=== PATIENT | male | born 1960 | race Caucasian/White ===

== ENCOUNTER 2022-03-21 14:59 | Observation (INO) ==
[2022-03-21] MEDS ORDERED: Naloxone 0.4 MG/ML INJ IVP PRN (17:10)
[2022-03-21] MEDS ORDERED: Acetaminophen 325 MG TABLET PO PRN (17:10)
[2022-03-21] MEDS ORDERED: Ondansetron 4 MG/2 ML VIAL IVP PRN (17:10)
[2022-03-21] MEDS ORDERED: Gadolinium Contrast Agent (WT Based) IV PRN (17:44)
[2022-03-21] MEDS ORDERED: *HR* Labetalol 20 MG/4 ML SYRINGE IVP PRN (17:48)
[2022-03-21] MEDS ORDERED: Cyanocobalamin (B-12) 1,000 MCG/ML VIAL SQ ONE (17:48)
[2022-03-21] MEDS ORDERED: Thiamine (B-1) 100 MG in 0.9 % Sodium Chloride 50 ML IVPB STA ×2 (17:51→21:31)
[2022-03-21] MEDS ORDERED: *HR* LORazepam 2 MG/ML VIAL IVP PRN ×3 (17:52)
[2022-03-22 06:59] LABS: Basophils % 0.6 %; Eosinophils # 0.2 K/mcL (0.0-0.6); Eosinophils % 2.8 %; Hematocrit 43.4 % (37.5-50.1); Hemoglobin 14.6 g/dL (12.9-16.9); Immature Granulocytes % 0.2 % (0-4); Lymphocytes # 1.3 K/mcL (0.6-4.6); Lymphocytes % 19.6 %; Mean Corpuscular HGB Conc 33.6 g/dL (31.6-35.5); Mean Corpuscular Hemoglobin 35.6 pg (28.0-33.3); Mean Corpuscular Volume 105.9 fL (83.0-100.0); Mean Platelet Volume 9.7 fL (9.4-12.4); Monocytes # 0.7 K/mcL (0.0-1.3); Monocytes % 10.2 %; Neutrophils # 4.3 K/mcL (1.6-8.9); Platelet Count 228 K/mcL (140-400); Red Cell Distribution Width 12.8 % (11.5-14.5); Segmented Neutrophils % 66.6 %; White Blood Count 6.5 K/mcL (4.3-11.1)
[2022-03-22 07:19] LABS: Alanine Aminotransferase 14 Units/L (7-52); Albumin 3.7 g/dL (3.5-5.7); Albumin/Globulin Ratio 1.5 (1.1-2.2); Alkaline Phosphatase 84 Units/L (34-104); Aspartate Amino Transferase 23 Units/L (13-39); BUN/Creatinine Ratio 13 (6-26); Bilirubin,Direct 0.1 mg/dL (0.0-0.2); Bilirubin,Indirect 0.5 mg/dL (0.0-1.0); Bilirubin,Total 0.6 mg/dL (0.3-1.0); Blood Urea Nitrogen 11 mg/dL (8-23); Carbon Dioxide 24 mEq/L (23-29); Chloride 108 mEq/L (98-107); Globulin 2.5 g/dL (2.4-3.5); Glucose 109 mg/dL (70-105); Osmolality,Calculated 288 (280-300); Potassium 4.6 mEq/L (3.5-5.1); Sodium 139 mEq/L (136-145); Total Protein 6.2 g/dL (6.4-8.9); eGFR For African Americans > 60 (> 60); eGFR For Non-African Americans > 60 (> 60)
[2022-03-22 07:44] LABS: Folate > 22.3 ng/mL (3.0-16.0); Vitamin B12 > 1500 pg/mL (250-1100)
[2022-03-22 07:49] LABS: Hepatitis B Surface Antigen Nonreactive (Nonreactive)
[2022-03-22 08:19] LABS: Hepatitis C Virus Antibody Nonreactive (Nonreactive)
[2022-03-22 08:20] LABS: Hepatitis A Antibody IgM Nonreactive (Nonreactive)
[2022-03-22] MEDS: Folic Acid 1 MG TABLET PO SCH (09:02)
[2022-03-22] MEDS: Nicotine 21 MG PATCH.TD24 TD SCH (09:02)
[2022-03-22] MEDS: Thiamine (B-1) 100 MG TABLET PO SCH (09:02)
[2022-03-22 09:32] LABS: Estimated Average Glucose 105 mg/dl; Hemoglobin A1C 5.3 %
[2022-03-22] MEDS: methylPREDNISolone 125 MG/2 ML VIAL IVP SCH (18:23)
[2022-03-23] MEDS: methylPREDNISolone 125 MG/2 ML VIAL IVP SCH ×2 (00:19→06:02)
[2022-03-23 06:22] LABS: BUN/Creatinine Ratio 19 (6-26); Blood Urea Nitrogen 13 mg/dL (8-23); Calcium 9.3 mg/dL (8.6-10.3); Carbon Dioxide 22 mEq/L (23-29); Chloride 107 mEq/L (98-107); Glucose 168 mg/dL (70-105); Osmolality,Calculated 286 (280-300); Potassium 4.1 mEq/L (3.5-5.1); Sodium 136 mEq/L (136-145); eGFR For African Americans > 60 (> 60); eGFR For Non-African Americans > 60 (> 60)
[2022-03-23 06:39] LABS: Basophils % 0.1 %; Hematocrit 43.7 % (37.5-50.1); Hemoglobin 15.2 g/dL (12.9-16.9); Immature Granulocytes % 0.4 % (0-4); Lymphocytes # 0.5 K/mcL (0.6-4.6); Mean Corpuscular HGB Conc 34.8 g/dL (31.6-35.5); Mean Corpuscular Hemoglobin 36.3 pg (28.0-33.3); Mean Corpuscular Volume 104.3 fL (83.0-100.0); Mean Platelet Volume 10.6 fL (9.4-12.4); Monocytes # 0.1 K/mcL (0.0-1.3); Monocytes % 0.6 %; Neutrophils # 7.1 K/mcL (1.6-8.9); Platelet Count 239 K/mcL (140-400); Red Blood Count 4.19 M/mcL (4.19-5.50); Red Cell Distribution Width 12.4 % (11.5-14.5); Segmented Neutrophils % 91.9 %; White Blood Count 7.7 K/mcL (4.3-11.1)
[2022-03-23 07:08] VITALS: BP 157/93; PULSE 107; TEMP 98.6; O2SAT 95
[2022-03-23] MEDS ORDERED: Vitamin B Complex/Vit C/Vit E 1 EACH TABLET PO SCH (09:00)
[2022-03-23] MEDS: Nicotine 21 MG PATCH.TD24 TD SCH (10:04)
[2022-03-23] MEDS: Folic Acid 1 MG TABLET PO SCH (10:04)
[2022-03-23] MEDS: Thiamine (B-1) 100 MG TABLET PO SCH (10:04)
== END 2022-03-23 13:32 | disposition home or self-care (01) ==
LOC: 3NENU → SUATTDRO 16:51
PROVIDERS: ADMIT Internal Medicine; ATTEND Student in an Organized Health Care Education/Training Program

== ENCOUNTER 2022-04-19 13:54 | Inpatient (IN) ==
[2022-04-19 14:30] LABS: Basophils % 0.4 %; Eosinophils # 0.2 K/mcL (0.0-0.6); Eosinophils % 2.1 %; Hematocrit 45.7 % (37.5-50.1); Hemoglobin 16.2 g/dL (12.9-16.9); Immature Granulocytes % 0.3 % (0-4); Lymphocytes # 1.7 K/mcL (0.6-4.6); Lymphocytes % 21.7 %; Mean Corpuscular HGB Conc 35.4 g/dL (31.6-35.5); Mean Corpuscular Hemoglobin 36.7 pg (28.0-33.3); Mean Corpuscular Volume 103.6 fL (83.0-100.0); Mean Platelet Volume 9.7 fL (9.4-12.4); Monocytes # 0.7 K/mcL (0.0-1.3); Monocytes % 8.9 %; Neutrophils # 5.2 K/mcL (1.6-8.9); Platelet Count 237 K/mcL (140-400); Red Blood Count 4.41 M/mcL (4.19-5.50); Red Cell Distribution Width 12.5 % (11.5-14.5); Segmented Neutrophils % 66.6 %; White Blood Count 7.7 K/mcL (4.3-11.1)
[2022-04-19 14:50] LABS: Alanine Aminotransferase 23 Units/L (7-52); Albumin 4.3 g/dL (3.5-5.7); Albumin/Globulin Ratio 1.5 (1.1-2.2); Alkaline Phosphatase 102 Units/L (34-104); Aspartate Amino Transferase 25 Units/L (13-39); BUN/Creatinine Ratio 12 (6-26); Bilirubin,Total 0.6 mg/dL (0.3-1.0); Blood Urea Nitrogen 9 mg/dL (8-23); Calcium 9.4 mg/dL (8.6-10.3); Carbon Dioxide 28 mEq/L (23-29); Chloride 105 mEq/L (98-107); Globulin 2.9 g/dL (2.4-3.5); Glucose 94 mg/dL (70-105); Osmolality,Calculated 288 (280-300); Potassium 3.7 mEq/L (3.5-5.1); Sodium 140 mEq/L (136-145); Total Protein 7.2 g/dL (6.4-8.9); eGFR For African Americans > 60 (> 60); eGFR For Non-African Americans > 60 (> 60)
[2022-04-19] MEDS ORDERED: Ondansetron 4 MG/2 ML VIAL IVP PRN (15:00)
[2022-04-19] MEDS ORDERED: Naloxone 0.4 MG/ML INJ IVP PRN (15:00)
[2022-04-19] MEDS ORDERED: Acetaminophen 325 MG TABLET PO PRN (15:00)
[2022-04-19] MEDS ORDERED: *HR* LORazepam 2 MG/ML VIAL IVP PRN ×2 (15:39)
[2022-04-19] MEDS: Nicotine 21 MG PATCH.TD24 TD SCH (16:37)
[2022-04-20 02:18] LABS: Hematocrit 42.7 % (37.5-50.1); Hemoglobin 14.5 g/dL (12.9-16.9); Mean Corpuscular Hemoglobin 36.8 pg (28.0-33.3); Mean Corpuscular Volume 108.4 fL (83.0-100.0); Platelet Count 202 K/mcL (140-400); Red Blood Count 3.94 M/mcL (4.19-5.50); Red Cell Distribution Width 12.7 % (11.5-14.5); White Blood Count 7.6 K/mcL (4.3-11.1)
[2022-04-20 02:37] LABS: Alanine Aminotransferase 19 Units/L (7-52); Albumin 3.7 g/dL (3.5-5.7); Albumin/Globulin Ratio 1.5 (1.1-2.2); Alkaline Phosphatase 88 Units/L (34-104); Aspartate Amino Transferase 20 Units/L (13-39); BUN/Creatinine Ratio 18 (6-26); Bilirubin,Total 0.4 mg/dL (0.3-1.0); Blood Urea Nitrogen 15 mg/dL (8-23); Calcium 9.3 mg/dL (8.6-10.3); Carbon Dioxide 30 mEq/L (23-29); Chloride 107 mEq/L (98-107); Cholesterol 174 mg/dL (< 200); Globulin 2.5 g/dL (2.4-3.5); Glucose 101 mg/dL (70-105); HDL Cholesterol 43 mg/dL (40-59); LDL Cholesterol,Calculated 100 mg/dL (< 100); Magnesium 1.9 mg/dL (1.6-2.6); Osmolality,Calculated 295 (280-300); Potassium 4.3 mEq/L (3.5-5.1); Sodium 142 mEq/L (136-145); Total Protein 6.2 g/dL (6.4-8.9); Triglycerides 157 mg/dL (< 150); eGFR For African Americans > 60 (> 60); eGFR For Non-African Americans > 60 (> 60)
[2022-04-20 03:01] LABS: Folate 18.6 ng/mL (3.0-16.0)
[2022-04-20] MEDS ORDERED: *HR* Enoxaparin 40 MG/0.4 ML SYRINGE SQ SCH (06:00)
[2022-04-20] MEDS: Thiamine (B-1) 100 MG TABLET PO SCH (09:16)
[2022-04-20] MEDS: Nicotine 21 MG PATCH.TD24 TD SCH (09:17)
[2022-04-20] MEDS ORDERED: Cyanocobalamin (B-12) 1,000 MCG/ML VIAL SQ ONE (13:00)
[2022-04-21 01:39] LABS: Basophils % 0.5 %; Eosinophils # 0.4 K/mcL (0.0-0.6); Eosinophils % 4.6 %; Hematocrit 43.4 % (37.5-50.1); Hemoglobin 14.5 g/dL (12.9-16.9); Immature Granulocytes % 0.3 % (0-4); Lymphocytes % 26.3 %; Mean Corpuscular HGB Conc 33.4 g/dL (31.6-35.5); Mean Corpuscular Hemoglobin 35.3 pg (28.0-33.3); Mean Corpuscular Volume 105.6 fL (83.0-100.0); Monocytes # 0.8 K/mcL (0.0-1.3); Monocytes % 10.4 %; Neutrophils # 4.5 K/mcL (1.6-8.9); Platelet Count 218 K/mcL (140-400); Red Blood Count 4.11 M/mcL (4.19-5.50); Red Cell Distribution Width 12.4 % (11.5-14.5); Segmented Neutrophils % 57.9 %; White Blood Count 7.7 K/mcL (4.3-11.1)
[2022-04-21 03:22] LABS: BUN/Creatinine Ratio 18 (6-26); Blood Urea Nitrogen 15 mg/dL (8-23); Calcium 9.1 mg/dL (8.6-10.3); Carbon Dioxide 26 mEq/L (23-29); Chloride 105 mEq/L (98-107); Glucose 102 mg/dL (70-105); Osmolality,Calculated 289 (280-300); Potassium 4.4 mEq/L (3.5-5.1); Sodium 139 mEq/L (136-145); eGFR For African Americans > 60 (> 60); eGFR For Non-African Americans > 60 (> 60)
[2022-04-21] MEDS: Thiamine (B-1) 100 MG TABLET PO SCH (08:15)
[2022-04-21] MEDS: Cyanocobalamin (B-12) 1,000 MCG/ML VIAL SQ SCH (08:16)
[2022-04-21] MEDS: Nicotine 21 MG PATCH.TD24 TD SCH (08:16)
[2022-04-21 10:38] LABS: Red Blood Cell,CSF < 2000 RBC/mcL
[2022-04-21 10:39] LABS: Appearance,CSF Clear (Clear)
[2022-04-21 11:46] LABS: Glucose,CSF 66 mg/dL (40-70); Total Protein,CSF 50 mg/dL (15-45)
[2022-04-21] MEDS ORDERED: *HR* Dextrose 50 % in Water (Syg) 50 ML SYRINGE IVP PRN (13:28)
[2022-04-21] MEDS ORDERED: D5% in Water 1,000 ML IVC PRN (13:28)
[2022-04-21] MEDS ORDERED: Dextrose 4 GM Chewable Tablets PO PRN ×2 (13:28)
[2022-04-21] MEDS: Insulin LISPRO 300 UNITS/3 ML VIAL SUBQ SCH ×2 (16:34→19:53)
[2022-04-21] MEDS: methylPREDNISolone 500 MG in 0.9 % Sodium Chloride 50 ML IVPB SCH (16:34)
[2022-04-21] MEDS: Pantoprazole 40 MG VIAL IVP SCH (17:07)
[2022-04-22] MEDS: Pantoprazole 40 MG VIAL IVP SCH ×2 (06:15→18:01)
[2022-04-22] MEDS: methylPREDNISolone 500 MG in 0.9 % Sodium Chloride 50 ML IVPB SCH ×2 (06:16→18:00)
[2022-04-22] MEDS: Nicotine 21 MG PATCH.TD24 TD SCH (07:28)
[2022-04-22] MEDS: Insulin LISPRO 300 UNITS/3 ML VIAL SUBQ SCH ×5 (07:28→21:27)
[2022-04-22] MEDS: Cyanocobalamin (B-12) 1,000 MCG/ML VIAL SQ SCH (07:28)
[2022-04-22] MEDS: Thiamine (B-1) 100 MG TABLET PO SCH (07:29)
[2022-04-22] MEDS ORDERED: Acetaminophen 325 MG TABLET PO ONE (14:43)
[2022-04-22] MEDS ORDERED: IVIG (wt based) Privigen 5 GM/50 ML INFUS..BTL IVC SCH (14:45)
[2022-04-22] MEDS: Immune Glob, Gamma (Gammagard) 20 GM/200 ML INFUS..BTL IVC SCH (16:30)
[2022-04-22] MEDS: Immune Glob, Gamma (Gammagard) 10 GM/100 ML INFUS..BTL IVC SCH (18:30)
[2022-04-22] MEDS: Immune Glob, Gamma (Gammagard) 5 GM/50 ML INFUS..BTL IVC SCH (19:02)
[2022-04-23] MEDS: Pantoprazole 40 MG VIAL IVP SCH ×2 (06:28→18:38)
[2022-04-23] MEDS: methylPREDNISolone 500 MG in 0.9 % Sodium Chloride 50 ML IVPB SCH ×2 (06:29→18:38)
[2022-04-23] MEDS: Insulin LISPRO 300 UNITS/3 ML VIAL SUBQ SCH ×4 (07:28→22:00)
[2022-04-23] MEDS: Nicotine 21 MG PATCH.TD24 TD SCH (08:23)
[2022-04-23] MEDS: Cyanocobalamin (B-12) 1,000 MCG/ML VIAL SQ SCH (08:24)
[2022-04-23] MEDS: Thiamine (B-1) 100 MG TABLET PO SCH (08:24)
[2022-04-23 12:55] LABS: Alpha 2 Globulin (PEP) 0.86 g/dL (0.48-1.05); Beta Globulin (PEP) 0.81 g/dL (0.48-1.10)
[2022-04-23] MEDS: Immune Glob, Gamma (Gammagard) 20 GM/200 ML INFUS..BTL IVC SCH (16:00)
[2022-04-23] MEDS: Immune Glob, Gamma (Gammagard) 10 GM/100 ML INFUS..BTL IVC SCH (16:57)
[2022-04-23] MEDS: Immune Glob, Gamma (Gammagard) 5 GM/50 ML INFUS..BTL IVC SCH (17:19)
[2022-04-24] MEDS: Pantoprazole 40 MG VIAL IVP SCH (05:40)
[2022-04-24] MEDS: methylPREDNISolone 500 MG in 0.9 % Sodium Chloride 50 ML IVPB SCH ×2 (05:41→17:01)
[2022-04-24] MEDS: Insulin LISPRO 300 UNITS/3 ML VIAL SUBQ SCH ×4 (07:07→21:11)
[2022-04-24] MEDS: Nicotine 21 MG PATCH.TD24 TD SCH (07:37)
[2022-04-24] MEDS: Cyanocobalamin (B-12) 1,000 MCG/ML VIAL SQ SCH (07:46)
[2022-04-24] MEDS: Thiamine (B-1) 100 MG TABLET PO SCH (07:46)
[2022-04-24 09:14] LABS: IFE Reflexed NOT DONE
[2022-04-24] MEDS: Immune Glob, Gamma (Gammagard) 20 GM/200 ML INFUS..BTL IVC SCH (15:40)
[2022-04-24] MEDS: Immune Glob, Gamma (Gammagard) 10 GM/100 ML INFUS..BTL IVC SCH (16:36)
[2022-04-24] MEDS: Immune Glob, Gamma (Gammagard) 5 GM/50 ML INFUS..BTL IVC SCH (17:00)
[2022-04-25 01:11] LABS: Basophils % 0.1 %; Hematocrit 40.3 % (37.5-50.1); Hemoglobin 13.6 g/dL (12.9-16.9); Immature Granulocytes % 0.7 % (0-4); Lymphocytes # 0.5 K/mcL (0.6-4.6); Lymphocytes % 3.5 %; Mean Corpuscular HGB Conc 33.7 g/dL (31.6-35.5); Mean Corpuscular Hemoglobin 35.9 pg (28.0-33.3); Mean Corpuscular Volume 106.3 fL (83.0-100.0); Mean Platelet Volume 9.9 fL (9.4-12.4); Monocytes # 0.4 K/mcL (0.0-1.3); Neutrophils # 12.4 K/mcL (1.6-8.9); Platelet Count 228 K/mcL (140-400); Red Blood Count 3.79 M/mcL (4.19-5.50); Red Cell Distribution Width 12.5 % (11.5-14.5); Segmented Neutrophils % 92.7 %
[2022-04-25 01:13] LABS: White Blood Count 13.4 K/mcL (4.3-11.1)
[2022-04-25 01:35] LABS: BUN/Creatinine Ratio 29 (6-26); Blood Urea Nitrogen 24 mg/dL (8-23); Calcium 8.6 mg/dL (8.6-10.3); Carbon Dioxide 25 mEq/L (23-29); Chloride 107 mEq/L (98-107); Glucose 164 mg/dL (70-105); Osmolality,Calculated 290 (280-300); Potassium 4.5 mEq/L (3.5-5.1); Sodium 136 mEq/L (136-145); eGFR For African Americans > 60 (> 60); eGFR For Non-African Americans > 60 (> 60)
[2022-04-25] MEDS: Insulin LISPRO 300 UNITS/3 ML VIAL SUBQ SCH ×4 (07:44→20:30)
[2022-04-25] MEDS: Thiamine (B-1) 100 MG TABLET PO SCH (08:32)
[2022-04-25] MEDS: Nicotine 21 MG PATCH.TD24 TD SCH (08:32)
[2022-04-25] MEDS: Cyanocobalamin (B-12) 1,000 MCG/ML VIAL SQ SCH (08:32)
[2022-04-25] MEDS ORDERED: polyethylene glycoL 3350 17 GM POWD.PACK PO PRN (15:57)
[2022-04-25] MEDS: Immune Glob, Gamma (Gammagard) 20 GM/200 ML INFUS..BTL IVC SCH (16:08)
[2022-04-25] MEDS: Sennosides 8.6 MG TABLET PO SCH (16:13)
[2022-04-25] MEDS: Immune Glob, Gamma (Gammagard) 10 GM/100 ML INFUS..BTL IVC SCH (16:50)
[2022-04-25] MEDS: Immune Glob, Gamma (Gammagard) 5 GM/50 ML INFUS..BTL IVC SCH (17:14)
[2022-04-26] MEDS: Insulin LISPRO 300 UNITS/3 ML VIAL SUBQ SCH ×4 (07:25→21:26)
[2022-04-26] MEDS: Nicotine 21 MG PATCH.TD24 TD SCH (08:06)
[2022-04-26] MEDS: Thiamine (B-1) 100 MG TABLET PO SCH (08:33)
[2022-04-26] MEDS: Sennosides 8.6 MG TABLET PO SCH (08:33)
[2022-04-26] MEDS: Cyanocobalamin (B-12) 1,000 MCG/ML VIAL SQ SCH (08:33)
[2022-04-26] MEDS: amLODIPine 5 MG TABLET PO SCH (15:27)
[2022-04-26] MEDS: Immune Glob, Gamma (Gammagard) 5 GM/50 ML INFUS..BTL IVC SCH (16:50)
[2022-04-26] MEDS: Immune Glob, Gamma (Gammagard) 10 GM/100 ML INFUS..BTL IVC SCH (17:50)
[2022-04-26] MEDS: Immune Glob, Gamma (Gammagard) 20 GM/200 ML INFUS..BTL IVC SCH (18:30)
[2022-04-27] MEDS: Insulin LISPRO 300 UNITS/3 ML VIAL SUBQ SCH ×4 (07:00→21:07)
[2022-04-27] MEDS: Thiamine (B-1) 100 MG TABLET PO SCH (08:46)
[2022-04-27] MEDS: amLODIPine 5 MG TABLET PO SCH (08:46)
[2022-04-27] MEDS: Sennosides 8.6 MG TABLET PO SCH (08:46)
[2022-04-27] MEDS: Cyanocobalamin (B-12) 1,000 MCG/ML VIAL SQ SCH (08:46)
[2022-04-27] MEDS: Nicotine 21 MG PATCH.TD24 TD SCH (08:46)
[2022-04-28] MEDS: Insulin LISPRO 300 UNITS/3 ML VIAL SUBQ SCH ×3 (07:54→17:40)
[2022-04-28] MEDS: Nicotine 21 MG PATCH.TD24 TD SCH (09:50)
[2022-04-28] MEDS: Sennosides 8.6 MG TABLET PO SCH (09:50)
[2022-04-28] MEDS: Thiamine (B-1) 100 MG TABLET PO SCH (09:50)
[2022-04-28] MEDS: amLODIPine 5 MG TABLET PO SCH (09:50)
[2022-04-28] MEDS: Cyanocobalamin (B-12) 1,000 MCG/ML VIAL SQ SCH (09:51)
[2022-04-28 14:34] VITALS: BP 123/79; PULSE 71; TEMP 98.4; O2SAT 97
[2022-04-28 15:33] LABS: APTT (LE Anticoag) 43 sec (32-48); Diluted Russell Viper Venom 37 sec (33-44); PT (LE-Anticoag) 12.3 sec (12.0-15.5)
[2022-04-28 16:19] LABS: Influenza A PCR Negative (Negative); Influenza B PCR Negative (Negative); Resp. Syncytial Virus PCR Negative (Negative)
[2022-04-28 16:20] LABS: SARS-CoV-2 by PCR (In House) Negative (Negative)
== END 2022-04-28 21:22 | DRG 641 ==
LOC: EMEROOARM 13:54 → 3BNU 13:54 → SUATTDRO 15:37 → 3BNU 16:33 → SUATTDRO 04-21 14:18
PROVIDERS: ADMIT Pharmacist; ATTEND Family Medicine